=== PATIENT | female | born 1975 | race Caucasian/White ===

== ENCOUNTER 2017-08-17 23:49 | Observation (INO) | payer BC ==
[~2017-08-17] VITALS: Ht 172.7 cm; Wt 54.3 kg
[~2017-08-17 23:49] MED LIST: ADDE10XR PO; ADDE20XR PO; CLON1 PO; ULTR50TA PO
[2017-08-17 23:55] VITALS: BP 119/83; PULSE 88; RESP 18; TEMP 99.1; O2SAT 96
[2017-08-18] VITALS (9 sets, daily range): BP systolic 98–118; BP diastolic 50–77; PULSE 61–112; RESP 18–20; TEMP 97.6–98; O2SAT 98–100
--- NOTE | 2017-08-18 00:13 | PD ---
HPI Chief Complaint: Numbness/Tingling Time Seen by Provider: 23:55 Travel History International Travel<30 days: No Contact w/Intl Traveler<30days: No Traveled to known affect area: No History of Present Illness HPI Patient is a 42 year old female who comes in complaining of numbness to the left side of her body. She says "it feels like when your body falls asleep." She says it started about 30 minutes prior to arrival. She says it started while laying in bed. She did smoke marijuana a little before symptoms started. She also describes chest pressure and thinks she is feeling anxious. She denies any weakness. She denies any recent falls. She denies fever or chills. Nothing seems to make the symptoms better or worse. Severity is mild to moderate. PFSH Past Medical History Anxiety: Yes Depression: Yes Cardiovascular Problems: Yes (MURMUR, HYPOTENSION) Cerebrovascular Accident: Yes (2006) Diabetes: No Diminished Hearing: No Endocrine: Yes (GRAVES DISEASE) Musculoskeletal: Yes (NECK) ?: Not LMP: 07/30/2017 Past Surgical History Section: Yes Gynecologic Surgery: Yes (right oopherectomy and fallopian tube removal) Hysterectomy: Yes (PARTIAL) Social History Alcohol Use: No Tobacco Use: Yes (1 PPD) Substance Use: Yes (MARIJUANA) Allergies-Medications (Allergen,Severity, Reaction): Coded Allergies: No Known Allergies (Unverified Adverse Reaction, Unknown, 08/18/17) Reported Meds & Prescriptions Reported Meds & Active Scripts Active Reported Lexapro (Escitalopram Oxalate) 10 Mg Tab 10 Mg PO DAILY Prozac (Fluoxetine HCl) 20 Mg Cap 20 Mg PO DAILY Clonazepam 0.5 Mg Tab 0.5 Mg PO BID Review of Systems Except as stated in HPI: all other systems reviewed are Neg General / Constitutional: No: Fever, Chills Eyes: No: Blurred Vision HENT: No: Lightheadedness Respiratory: Positive: Cough, No: Shortness of Breath Gastrointestinal: No: Nausea, Vomiting Musculoskeletal: No: Myalgias, Edema Skin: No Rash, No Change in Pigmentation Neurologic: Positive: Paresthesia, No: Weakness, Dizziness, Syncope Physical Exam Narrative GENERAL: Awake and alert, in no acute distress. SKIN: Focused skin assessment warm/dry. HEAD: Atraumatic. Normocephalic. EYES: Pupils equal and round and reactive. No scleral icterus. EOMI. ENT: Mucous membranes pink and moist. NECK: Trachea midline. No JVD. No cervical spine tenderness. CARDIOVASCULAR: Regular rate and rhythm. No murmur appreciated. RESPIRATORY: No accessory muscle use. Clear to auscultation. Breath sounds equal bilaterally. GASTROINTESTINAL: Abdomen soft, non-tender, nondistended. MUSCULOSKELETAL: No obvious deformities. No clubbing. No cyanosis. No edema. NEUROLOGICAL: Awake and alert. No obvious cranial nerve deficits. Motor grossly within normal limits. Normal speech. No loss of sensation. PSYCHIATRIC: Appropriate mood and affect; insight and judgment normal. Data Data Last Documented VS Vital Signs Date Time Temp Pulse Resp B/P (MAP) Pulse Ox O2 Delivery O2 Flow Rate FiO2 08/18/17 01:00 82 18 111/56 (74) 100 Room Air 08/17/17 23:55 99.1 Orders Orders Electrocardiogram (08/18/17 00:03) Ckmb (Isoenzyme) Profile (08/18/17 00:03) Complete Blood Count With Diff (08/18/17 00:03) Comprehensive Metabolic Panel (08/18/17 00:03) Prothrombin Time / Inr (Pt) (08/18/17 00:03) Act Partial Throm Time (Ptt) (08/18/17 00:03) Troponin I (08/18/17 00:03) Chest, Single Ap (08/18/17 00:03) Ecg Monitoring (08/18/17 00:03) Bilateral Bp Monitoring (08/18/17 00:03) Iv Access Insert/Monitor (08/18/17 00:03) Oximetry (08/18/17 00:03) Sodium Chloride 0.9% Flush (Ns Flush) (08/18/17 00:15) Ed Urine Pregnancytest Poc (08/18/17 00:03) Drug Screen, Random Urine (08/18/17 00:03) Ct Brain W/O Iv Contrast(Rout) (08/18/17 ) Ct Cerv Spine W/O Contrast (08/18/17 ) Sodium Chlorid 0.9% 500 Ml Inj (Ns 500 M (08/18/17 00:15) Labs Laboratory Tests Test 08/18/17 00:03 08/18/17 00:25 White Blood Count 10.8 TH/MM3 Red Blood Count 3.70 MIL/MM3 Hemoglobin 12.1 GM/DL Hematocrit 35.0 % Mean Corpuscular Volume 94.6 FL Mean Corpuscular Hemoglobin 32.6 PG Mean Corpuscular Hemoglobin Concent 34.5 % Red Cell Distribution Width 14.0 % Platelet Count 244 TH/MM3 Mean Platelet Volume 7.2 FL Neutrophils (%) (Auto) 73.3 % Lymphocytes (%) (Auto) 17.0 % Monocytes (%) (Auto) 6.8 % Eosinophils (%) (Auto) 1.4 % Basophils (%) (Auto) 1.5 % Neutrophils # (Auto) 7.8 TH/MM3 Lymphocytes # (Auto) 1.8 TH/MM3 Monocytes # (Auto) 0.7 TH/MM3 Eosinophils # (Auto) 0.2 TH/MM3 Basophils # (Auto) 0.2 TH/MM3 CBC Comment DIFF FINAL Differential Comment Prothrombin Time 11.5 SEC Prothromb Time International Ratio 1.1 RATIO Activated Partial Thromboplast Time 26.3 SEC Blood Urea Nitrogen 16 MG/DL Creatinine 0.72 MG/DL Random Glucose 90 MG/DL Total Protein 7.2 GM/DL Albumin 3.6 GM/DL Calcium Level 8.2 MG/DL Alkaline Phosphatase 44 U/L Aspartate Amino Transf (AST/SGOT) 9 U/L Alanine Aminotransferase (ALT/SGPT) 9 U/L Total Bilirubin 0.2 MG/DL Sodium Level 140 MEQ/L Potassium Level 3.3 MEQ/L Chloride Level 107 MEQ/L Carbon Dioxide Level 23.3 MEQ/L Anion Gap 10 MEQ/L Estimat Glomerular Filtration Rate 89 ML/MIN Total Creatine Kinase 89 U/L Troponin I LESS THAN 0.02 NG/ML Urine Opiates Screen NEG Urine Barbiturates Screen NEG Urine Amphetamines Screen NEG Urine Benzodiazepines Screen NEG Urine Cocaine Screen POS Urine Cannabinoids Screen POS MDM Medical Decision Making Medical Screen Exam Complete: Yes Emergency Medical Condition: Yes Medical Record Reviewed: Yes Interpretation(s) ECG shows NSR at a rate of 79, no ST elevation or depression, normal intervals Differential Diagnosis Electrolyte abnormalities vs dehydration vs TIA vs radiculopathy vs intoxication Narrative Course Patient is a 42 year old female who comes in complaining of numbness to her left side. On exam, she states her left side is "more sensitive" to touch. IV established, labs sent. Labs show no acute abnormalities. Drug screen positive for marijuana and cocaine. CT head and C-spine show no acute abnormalities. CXR shows no acute abnormalities. Last 24 hours Impressions Chest X-Ray 08/18/17 0003 Signed Impressions: CONCLUSION: Hyperinflation without infiltrate. Head CT 08/18/17 0000 Signed Impressions: CONCLUSION: 1. No acute intracranial abnormality Cervical Spine CT 08/18/17 0000 Signed Impressions: CONCLUSION: 1. No fracture or subluxation Patient given IVF. She says she is still having the numbness coming and going as well as the chest pain. Patient will be placed in observation for ACS rule out and TIA rule out. Diagnosis Primary Impression: Arm paresthesia, left Additional Impressions: Intermittent paresthesia of left hand and foot Chest pain Qualified Codes: R07.9 - Chest pain, unspecified Admitting Information Admitting Physician Requests: Observation Patient Instructions: General Instructions Condition: Stable Paula Pinto MD Aug 18, 2017 00:13
[2017-08-18] MEDS ORDERED: SODIUM CHLORIDE 0.9% FLUSH 10 ML FLUSH IVF PRN (00:15)
[2017-08-18] MEDS ORDERED: SODIUM CHLORID 0.9% 500 ML INJ 500 ML IV ONE (00:15)
--- NOTE | 2017-08-18 00:25 | RADRPT ---
EXAM DATE: 08/18/2017 12:19 AM EDT AGE/SEX: 42 years / Female INDICATIONS: Chest pain. CLINICAL DATA: This is the patient's initial encounter. Patient reports that signs and symptoms have been present for 1 day and indicates a pain score of 6/10. MEDICAL/SURGICAL HISTORY: . Cardiovascular disease. Cardiovascular disease Hysterectomy. COMPARISON: [facility] [place], CHEST SINGLE AP, 11/28/2015. . FINDINGS: A single AP view of the chest demonstrates the lungs to be hyperaerated without evidence of mass, inf iltrate or effusion. The cardiomediastinal contours are unremarkable. Osseous structures are intact . Dextroscoliosis. CONCLUSION: Hyperinflation without infiltrate. Electronically signed by: Feliciano Martines MD 08/18/2017 12:23 AM EDT
[2017-08-18 00:30] LABS: AUTOMATED NEUTROPHIL # 7.8 TH/MM3 (1.8-7.7); BASOPHIL # 0.2 TH/MM3 (0-0.2); BASOPHIL % 1.5 % (0.0-2.0); EOSINOPHIL # 0.2 TH/MM3 (0-0.4); EOSINOPHIL % 1.4 % (0.0-4.0); HEMOGLOBIN 12.1 GM/DL (11.6-15.3); LYMPHOCYTE # 1.8 TH/MM3 (1.0-4.8); MEAN CELL VOLUME 94.6 FL (80.0-100.0); MEAN CORPUSCULAR HEMOGLOBIN 32.6 PG (27.0-34.0); MEAN CORPUSCULAR HGB CONC 34.5 % (32.0-36.0); MEAN PLATELET VOLUME 7.2 FL (7.0-11.0); MONO % 6.8 % (0.0-8.0); MONOCYTE # 0.7 TH/MM3 (0-0.9); NEUT % 73.3 % (16.0-70.0); PLATELET COUNT 244 TH/MM3 (150-450); WHITE BLOOD COUNT 10.8 TH/MM3 (4.0-11.0)
[2017-08-18 00:56] LABS: INTERNATIONAL NORMALIZED RATIO 1.1 RATIO; PROTHROMBIN TIME - PATIENT 11.5 SEC (9.8-11.6)
[2017-08-18 00:57] LABS: CHLORIDE 107 MEQ/L (98-107); SODIUM (NA) 140 MEQ/L (136-145)
[2017-08-18] MEDS ORDERED: CLON0.5T PO (00:57)
[2017-08-18] MEDS ORDERED: LEXA10TA PO (00:57)
[2017-08-18] MEDS ORDERED: PROZ20CA11 PO (00:57)
[2017-08-18 01:00] LABS: CALCIUM 8.2 MG/DL (8.5-10.1)
[2017-08-18 01:01] LABS: ALBUMIN 3.6 GM/DL (3.4-5.0); BICARBONATE 23.3 MEQ/L (21.0-32.0); BLOOD UREA NITROGEN 16 MG/DL (7-18); GLUCOSE,RANDOM 90 MG/DL (74-106)
[2017-08-18 01:04] LABS: ALT (GPT) 9 U/L (10-53); AST (GOT) 9 U/L (15-37); CREATININE 0.72 MG/DL (0.50-1.00); GLOMERULAR FILTRATION RATE 89 ML/MIN (>89)
--- NOTE | 2017-08-18 01:04 | RADRPT ---
EXAM DATE: 08/18/2017 12:58 AM EDT AGE/SEX: 42 years / Female INDICATIONS: Left sided numbness. CLINICAL DATA: This is the patient's initial encounter. Patient reports that signs and symptoms have been present for 1 day and indicates a pain score of 0/10. MEDICAL/SURGICAL HISTORY: . Traumatic brain injury two years ago. Hysterectomy. RADIATION DOSE: 24.38 CTDI (mGy) COMPARISON: [facility] [place], CT CERVICAL SPINE W/O CONTRAST, 11/28/2015. . TECHNIQUE: Contiguous axial images were obtained using helical multirow detector technique. The vol umetric data was post-processed with multiplanar reconstruction in oblique axial, sagittal, and coron al planes. Using automated exposure control and adjustment of the mA and/or kV according to patient s ize, radiation dose was kept as low as reasonably achievable to obtain optimal diagnostic quality jaqueline ges. FINDINGS: Vertebrae: Normal vertebral body height. Degenerative changes. Alignment: Normal. No subluxation. C2-3: The bony spinal canal is normal in size. No evidence of disc bulge or herniation. The neural foramina are bilaterally patent. C3-4: The bony spinal canal is normal in size. No evidence of disc bulge or herniation. The neural foramina are bilaterally patent. C4-5: The bony spinal canal is normal in size. No evidence of disc bulge or herniation. The neural foramina are bilaterally patent. C5-6: The bony spinal canal is normal in size. No evidence of disc bulge or herniation. The neural foramina are bilaterally patent. C6-7: The bony spinal canal is normal in size. No evidence of disc bulge or herniation. The neural foramina are bilaterally patent. C7-T1: The bony spinal canal is normal in size. No evidence of disc bulge or herniation. The neura l foramina are bilaterally patent. CONCLUSION: 1. No fracture or subluxation Electronically signed by: Feliciano Martines MD 08/18/2017 1:02 AM EDT
--- NOTE | 2017-08-18 01:04 | RADRPT ---
EXAM DATE: 08/18/2017 12:53 AM EDT AGE/SEX: 42 years / Female INDICATIONS: Left sided extremity numbness. CLINICAL DATA: This is the patient's initial encounter. Patient reports that signs and symptoms have been present for 1 day and indicates a pain score of 0/10. MEDICAL/SURGICAL HISTORY: . Traumatic brain injury two years ago. Hysterectomy. RADIATION DOSE: 35.32 CTDI (mGy) COMPARISON: [facility] [place] BRAIN [place]/O CONTRAST, 12/21/2015. . TECHNIQUE: CT of the head without contrast. Using automated exposure control and adjustment of the mA and/or kV according to patient size, radiation dose was kept as low as reasonably achievable to ob tain optimal diagnostic quality images. FINDINGS: Cerebrum: The ventricles are normal for age. No evidence of midline shift, mass lesion, hemorrhage or acute infarction. No extraaxial fluid collections are seen. Posterior Fossa: The cerebellum and brainstem are intact. The 4th ventricle is midline. The cerebe llopontine angle is unremarkable. Extracranial: The visualized portion of the orbits is intact. Skull: The calvaria is intact. No evidence of skull fracture. CONCLUSION: 1. No acute intracranial abnormality Electronically signed by: Feliciano Martines MD 08/18/2017 1:03 AM EDT
[2017-08-18 01:05] LABS: TOTAL BILIRUBIN ADULT 0.2 MG/DL (0.2-1.0); TOTAL PROTEIN 7.2 GM/DL (6.4-8.2)
[2017-08-18 01:07] LABS: ALKALINE PHOSPHATASE 44 U/L (45-117)
[2017-08-18 01:09] LABS: TROPONIN I LESS THAN 0.02 NG/ML (0.02-0.05)
[2017-08-18] MEDS ORDERED: SENNOSIDES 8.6 MG TAB PO PRN (01:45)
[2017-08-18] MEDS ORDERED: MAGNESIUM HYDROXIDE SUSP 30 ML CUP PO PRN (01:45)
[2017-08-18] MEDS ORDERED: BISACODYL 10 MG SUPP RECTAL PRN (01:45)
[2017-08-18] MEDS ORDERED: MORPHINE SULFATE 2 MG/ML SYRINGE IV PUSH PRN (01:45)
[2017-08-18] MEDS ORDERED: SODIUM CHLORIDE 0.9% FLUSH 10 ML FLUSH IV FLUSH PRN (01:45)
[2017-08-18] MEDS ORDERED: ACETAMINOPHEN 325 MG TAB PO PRN (01:45)
[2017-08-18] MEDS ORDERED: LACTULOSE SYRUP 20 GM/30 ML CUP PO PRN (01:45)
[2017-08-18] MEDS: SODIUM CHLOR 0.9% 1000 ML INJ 1,000 ML IV SCH ×2 (02:24→11:54)
--- NOTE | 2017-08-18 08:21 | HHI.HP ---
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 Patient states she was lying in bed watching TV when suddenly she developed a numbness to her left cheek as well as her left upper extremity. Patient states prior to the symptoms she did smoke some marijuana. Patient does admit to history of anxiety, states that these sensation continued therefore her boyfriend brought her to the ED. Patient states that her symptoms lasted roughly 1 hour and then subsided on their own upon presenting to the ED. Patient does admit to some chest tightness during episode although relates this to her chronic anxiety. Patient denies any recent illness including fever chills, cough, headache, shortness of breath, abdominal pain, nausea vomiting diarrhea. Patient does suffer from severe anxiety and depression. Does admit to history of head injury, was hospitalized last year and has been treated for history of seizures. Tox screen upon presentation showing cocaine and cannabis. Upon assessment patient' s symptoms have all resolved. Review of Systems Constitutional: DENIES: Fatigue, Fever, Chills Eyes: DENIES: Diplopia Ears, nose, mouth, throat: DENIES: Vertigo Respiratory: DENIES: Cough, Shortness of breath Cardiovascular: DENIES: Chest pain, Palpitations, Dyspnea on Exertion, Lower Extremity Edema Gastrointestinal: DENIES: Abdominal pain, Black stools, Bloody stools Musculoskeletal: DENIES: Joint pain Hematologic/lymphatic: DENIES: Bruising Neurologic: COMPLAINS OF: Paresthesias (Left-sided), Seizures (History of), DENIES: Abnormal gait, Localized weakness, Speech Problems, Tremor, Poor Balance Psychiatric: COMPLAINS OF: Anxiety, Depression Except as stated in HPI: all other systems reviewed are Neg Past Family Social History Past Medical History Anxiety depression History of murmur History of CVA 2006 Graves' disease History of seizures status post head injury 1 year ago Tobacco abuse Cocaine abuse Past Surgical History Partial hysterectomy History of right oophorectomy History of fallopian tube removal Reported Medications Active Reported Lexapro (Escitalopram Oxalate) 10 Mg Tab 10 Mg PO DAILY Prozac (Fluoxetine HCl) 20 Mg Cap 20 Mg PO DAILY Clonazepam 0.5 Mg Tab 0.5 Mg PO BID Allergies: Coded Allergies: No Known Allergies (Unverified Allergy, Unknown, 08/18/17) Active Ordered Medications Current Medications Medications (Trade) Dose Ordered Sig/Goldy Route Start Time Stop Time Status Last Admin Sodium Chloride 1,000 ml @ 100 mls/hr Q10H IV 08/18/17 01:41 08/18/17 11:54 (NS Flush) 2 ml UNSCH PRN IV FLUSH 08/18/17 01:45 (NS Flush) 2 ml BID IV FLUSH 08/18/17 09:00 08/18/17 08:22 (Tylenol) 650 mg Q6H PRN PO 08/18/17 01:45 (Morphine Inj) 2 mg Q3H PRN IV PUSH 08/18/17 01:45 (Roxicodone) 5 mg Q4H PRN PO 08/18/17 01:45 (Rebeca-Colace) 1 tab BID PO 08/18/17 09:00 (Milk Of Magnesia Liq) 30 ml Q12H PRN PO 08/18/17 01:45 (Senokot) 17.2 mg Q12H PRN PO 08/18/17 01:45 (Dulcolax Supp) 10 mg DAILY PRN RECTAL 08/18/17 01:45 (Lactulose Liq) 30 ml DAILY PRN PO 08/18/17 01:45 (Ecotrin Ec) 81 mg DAILY PO 08/18/17 09:00 08/18/17 08:21 (KlonoPIN) 0.5 mg BID PO 08/18/17 09:00 08/18/17 09:21 (Lexapro) 10 mg DAILY PO 08/18/17 09:00 08/18/17 09:21 (PROzac) 20 mg DAILY PO 08/18/17 09:00 08/18/17 09:22 Family History Patient denies any significant family medical history. Social History Denies any alcohol abuse. Does admit to smoking half pack per day of cigarettes for the last 12 years. Does admit to smoking marijuana and occasional cocaine. Physical Exam Vital Signs Vital Signs Date Time Temp Pulse Resp B/P (MAP) Pulse Ox O2 Delivery O2 Flow Rate FiO2 08/18/17 07:15 97.7 61 20 115/60 (78) 99 08/18/17 04:20 69 08/18/17 04:06 98.0 73 20 104/62 (76) 99 08/18/17 03:10 68 18 110/58 (75) 08/18/17 01:00 82 18 111/56 (74) 100 Room Air 08/18/17 00:26 78 18 118/77 (91) 100 Room Air 118/66 (83) 08/18/17 00:03 88 18 96 Room Air 08/17/17 23:55 99.1 88 18 119/83 (95) 96 Physical Exam GENERAL: Well-developed, thin appearing female patient in NAD. SKIN: Warm and dry. No rash. HEAD: Normocephalic. Atraumatic. EYES: Pupils equal and round. No scleral icterus. No injection or drainage. ENT: No nasal bleeding or discharge. Mucous membranes pink and moist. NECK: Supple. Trachea midline. CARDIOVASCULAR: Regular rate and rhythm. S1, S2 noted. RESPIRATORY: No accessory muscle use. Clear to auscultation. Breath sounds equal bilaterally. GASTROINTESTINAL: Abdomen soft, non-tender, nondistended. Normoactive bowel sounds x4. MUSCULOSKELETAL: No obvious deformities. Extremities without clubbing, cyanosis , or edema. NEUROLOGICAL: Awake and alert. No obvious cranial nerve deficits. Motor grossly within normal limits. 5/5 muscle strength in bilateral upper and lower extremities. Normal speech. PSYCHIATRIC: Appropriate mood and affect; insight and judgment normal. Laboratory Laboratory Tests Test 08/18/17 00:03 08/18/17 00:25 08/18/17 07:40 White Blood Count 10.8 Red Blood Count 3.70 Hemoglobin 12.1 Hematocrit 35.0 Mean Corpuscular Volume 94.6 Mean Corpuscular Hemoglobin 32.6 Mean Corpuscular Hemoglobin Concent 34.5 Red Cell Distribution Width 14.0 Platelet Count 244 Mean Platelet Volume 7.2 Neutrophils (%) (Auto) 73.3 Lymphocytes (%) (Auto) 17.0 Monocytes (%) (Auto) 6.8 Eosinophils (%) (Auto) 1.4 Basophils (%) (Auto) 1.5 Neutrophils # (Auto) 7.8 Lymphocytes # (Auto) 1.8 Monocytes # (Auto) 0.7 Eosinophils # (Auto) 0.2 Basophils # (Auto) 0.2 CBC Comment DIFF FINAL Differential Comment Prothrombin Time 11.5 Prothromb Time International Ratio 1.1 Activated Partial Thromboplast Time 26.3 Blood Urea Nitrogen 16 Creatinine 0.72 Random Glucose 90 Total Protein 7.2 Albumin 3.6 Calcium Level 8.2 Alkaline Phosphatase 44 Aspartate Amino Transf (AST/SGOT) 9 Alanine Aminotransferase (ALT/SGPT) 9 Total Bilirubin 0.2 Sodium Level 140 Potassium Level 3.3 Chloride Level 107 Carbon Dioxide Level 23.3 Anion Gap 10 Estimat Glomerular Filtration Rate 89 Total Creatine Kinase 89 Troponin I LESS THAN 0.02 LESS THAN 0.02 Urine Opiates Screen NEG Urine Barbiturates Screen NEG Urine Amphetamines Screen NEG Urine Benzodiazepines Screen NEG Urine Cocaine Screen POS Urine Cannabinoids Screen POS Result Diagram: 08/18/17 0003 08/18/17 0003 Imaging Last Impressions Chest X-Ray 08/18/17 0003 Signed Impressions: CONCLUSION: Hyperinflation without infiltrate. Head CT 08/18/17 0000 Signed Impressions: CONCLUSION: 1. No acute intracranial abnormality Cervical Spine CT 08/18/17 0000 Signed Impressions: CONCLUSION: 1. No fracture or subluxation Septic Shock Reassessment Septic shock perfusion: reassessment completed Caprini VTE Risk Assessment Caprini VTE Risk Assessment: No/Low Risk (score <= 1) Caprini Risk Assessment Model Point Value = 1 Point Value = 2 Point Value = 3 Point Value = 5 Age 41-60 Minor surgery BMI > 25 kg/m2 Swollen legs Varicose veins or History of unexplained or recurrent spontaneous Oral contraceptives or hormone replacement Sepsis (< 1 month) Serious lung disease, including pneumonia (< 1 month) Abnormal pulmonary function Acute myocardial infarction Congestive heart failure (< 1 month) History of inflammatory bowel disease Medical patient at bed rest Age 61-74 Arthroscopic surgery Major open surgery (> 45 min) Laparoscopic surgery (> 45 min) Malignancy Confined to bed (> 72 hours) Immobilizing plaster cast Central venous access Age >= 75 History of VTE Family history of VTE Factor V Leiden Prothrombin [id number] Lupus anticoagulant Anticardiolipin antibodies Elevated serum homocysteine Heparin-induced thrombocytopenia Other congenital or acquired thrombophilia Stroke (< 1 month) Elective arthroplasty Hip, pelvis, or leg fracture Acute spinal cord injury (< 1 month) Prophylaxis Regimen Total Risk Factor Score Risk Level Prophylaxis Regimen 0-1 Low Early ambulation 2 Moderate Order ONE of the following: *Sequential Compression Device (SCD) *Heparin 5000 units SQ BID 3-4 Higher Order ONE of the following medications: *Heparin 5000 units SQ TID *Enoxaparin/Lovenox 40 mg SQ daily (WT < 150 kg, CrCl > 30 mL/min) *Enoxaparin/Lovenox 30 mg SQ daily (WT < 150 kg, CrCl > 10-29 mL/min) *Enoxaparin/Lovenox 30 mg SQ BID (WT < 150 kg, CrCl > 30 mL/min) AND/OR *Sequential Compression Device (SCD) 5 or more Highest Order ONE of the following medications: *Heparin 5000 units SQ TID (Preferred with Epidurals) *Enoxaparin/Lovenox 40 mg SQ daily (WT < 150 kg, CrCl > 30 mL/min) *Enoxaparin/Lovenox 30 mg SQ daily (WT < 150 kg, CrCl > 10-29 mL/min) *Enoxaparin/Lovenox 30 mg SQ BID (WT < 150 kg, CrCl > 30 mL/min) AND *Sequential Compression Device (SCD) Assessment and Plan Assessment and Plan This is a 42-year-old female patient with a 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 Patient states she was lying in bed watching TV when suddenly she developed a numbness to her left cheek as well as her left upper extremity. Left-sided weakness rule out TIA/CVA History of seizures - Head CT negative on presentation. Cervical spine CT negative. Awaiting MRI of the brain. - Toxicology positive for cocaine and Cannibis. - All symptoms have resolved. Continue home medications. Atypical chest tightness - Serial troponins negative. EKG reviewed showing NSR, with controlled HR, no ST changes. Given aspirin. - Pain control, continue home Oxycodone. - Chest x-ray showing hyperinflation without infiltrate. Hypokalemia: K 3.3. Will replace. Tobacco abuse Substance abuse - Encouraged cessation. Chronic severe anxiety and depression: Continue home medications. DVT Prophylaxis: SCDs. Discharge patient to home. Condition on discharge: Improved Regular Diet as tolerated. Ad Valery activity. Rx written: Please see discharge plan. Follow-up with primary care physician. Paula Martínez Aug 18, 2017 08:21
[2017-08-18] MEDS ORDERED: POTASSIUM CHLORIDE 20 MEQ CONTROLLED RELEASE TAB PO ONE (08:45)
[2017-08-18] MEDS ORDERED: clonazePAM 0.5 MG TAB PO SCH (09:00)
[2017-08-18] MEDS ORDERED: SODIUM CHLORIDE 0.9% FLUSH 10 ML FLUSH IV FLUSH SCH (09:00)
[2017-08-18] MEDS ORDERED: DOCUSATE SODIUM 50 MG/SENNA 8.6 MG TAB PO SCH (09:00)
[2017-08-18] MEDS ORDERED: ESCITALOPRAM OXALATE 10 MG TAB PO SCH (09:00)
[2017-08-18] MEDS ORDERED: ASPIRIN EC 81 MG TABEC PO SCH (09:00)
[2017-08-18] MEDS ORDERED: FLUoxetine HCL 20 MG CAP PO SCH (09:00)
--- NOTE | 2017-08-18 12:44 | EKG ---
Date Performed: 08/18/2017 Time Performed: 00:13:05 PTAGE: 42 years EKG: Sinus rhythm NORMAL ECG PREVIOUS TRACING : 11/29/2015 02.11 Normalization since prior tracing DOCTOR: Dominic Liao Interpretating Date/Time 08/18/2017 12:43:38
[2017-08-18] MEDS ORDERED: ECASA81 PO (12:46)
--- NOTE | 2017-08-18 12:47 | HHI.DCPOC ---
Discharge Care Plan Diagnosis: (1) Arm paresthesia, left Goals to Promote Your Health * To prevent worsening of your condition and complications * To maintain your health at the optimal level Directions to Meet Your Goals Take your medications as prescribed Follow your dietary instruction Follow activity as directed Keep your appointments as scheduled Take your immunizations and boosters as scheduled If your symptoms worsen call your PCP, if no PCP go to Urgent Care Center or Emergency Room Smoking is Dangerous to Your Health. Avoid second hand smoke Call the 24-hour hour crisis hotline for domestic abuse at Paula Martínez Aug 18, 2017 12:47
[2017-08-18] MEDS ORDERED: GADODIAMIDE PF 287 MG/ML 10 ML VIAL (for RAD MRI) IVCONTRAST ONE (14:39)
--- NOTE | 2017-08-18 17:27 | RADRPT ---
EXAM DATE: 08/18/2017 2:55 PM EDT AGE/SEX: 42 years / Female INDICATIONS: Left sided weakness. CLINICAL DATA: This is the patient's initial encounter. Patient reports that signs and symptoms have been present for 1 day and indicates a pain score of 0/10. MEDICAL/SURGICAL HISTORY: . Hypotension. Hysterectomy. COMPARISON: No prior exams available for comparison. TECHNIQUE: Multiplanar, multisequence examination of the brain was performed without and with 10cc ml Omniscan (gadodiamide) contrast as a single exam dose. FINDINGS: There is some focal encephalomalacia in the inferior frontal lobes bilaterally related to previous he morrhagic contusions. There is some hemosiderin deposition at these locations. There is no new intrac ranial mass, shift or hydrocephalus. No abnormal enhancement, postcontrast. No recent infarct. CONCLUSION: 1. Encephalomalacia in the orbital frontal region bilaterally. No acute findings. No recent infarct. Electronically signed by: Brad Cain MD 08/18/2017 5:26 PM EDT
== END 2017-08-18 17:54 | disposition home or self-care (01) ==
LOC: PHED 23:49 → PHEDA 08-18 01:44 → PH3B 08-18 03:14
PROVIDERS: ADMIT Hospitalist; ATTEND Hospitalist
DX: G45.9 Transient cerebral ischemic attack, unspecified (principal); R07.89 Other chest pain; E87.6 Hypokalemia; F41.9 Anxiety disorder, unspecified; F32.9 Major depressive disorder, single episode, unspecified; F17.210 Nicotine dependence, cigarettes, uncomplicated; F12.90 Cannabis use, unspecified, uncomplicated; Z86.73 Personal history of transient ischemic attack (TIA), and cerebral infarction without residual deficits; Z90.710 Acquired absence of both cervix and uterus; Z90.721 Acquired absence of ovaries, unilateral
CPT/HCPCS: 70450; 70553; 71045; 72125; 80053; 80307; 82550; 84484; 84703; 85025; 85610; 85730; 93005; 96360; 96361; 99285; A9579; G0378; J7030; J7040